=== PATIENT | female | born 1985 | race African-American/Black ===

== ENCOUNTER 2024-01-10 11:10 | Outpatient (CLI) | payer MEDICARE, MEDICAID, SELFPAY ==
[2024-01-10 11:57] LABS: Hematocrit 41.9 % (37.0-47.0); Hemoglobin 13.3 g/dL (12.0-15.0); Mean Corpuscular HGB Conc 31.7 g/dl (32-36); Mean Corpuscular Hemoglobin 26.1 pg (26-34); Mean Corpuscular Volume 82.2 fl (80-100); Platelet Count Result 256 k/mm3 (150-375); Red Cell Distribution Width 13.1 % (11.5-14.5); White Blood Count 7.5 K/mm3 (4.5-10.0)
[2024-01-10 12:10] LABS: Alanine Aminotransferase 13 U/L (6-35); Albumin Level 4.4 g/dL (3.5-5.1); Alkaline Phosphatase 100 U/L (38-126); Anion Gap 10 mmol/L (4-12); Aspartate Amino Transferase 22 U/L (14-36); Bilirubin,Total 0.5 mg/dL (0.2-1.3); Blood Urea Nitrogen 11 mg/dL (7-17); Calcium 9.3 mg/dL (8.4-10.2); Carbon Dioxide 27 mmol/L (22-30); Chloride 105 mmol/L (98-107); Estimated Glomerular Filt Rate > 60; Glucose 78 mg/dL (65-110); Potassium 3.5 mmol/L (3.4-5.0); Sodium 142 mmol/L (137-145)
[2024-01-10 12:15] LABS: INR 1.2
[2024-01-10 12:16] LABS: Immunoglobulin A 149 mg/dL (70-400)
[2024-01-10 12:35] LABS: Iron 135 ug/dL (37-170)
[2024-01-10 12:44] LABS: Percent Iron Saturation 36 % (20-50)
[2024-01-10 13:08] LABS: Hepatitis B Surface Antigen Negative (Negative)
[2024-01-10 13:14] LABS: HAV RESULT Negative (Negative); Hepatitis B Core IgM Result Negative (Negative)
[2024-01-10 13:26] LABS: Hepatitis C Virus Antibody Negative (Negative)
[2024-01-11 15:19] LABS: GGT 20 U/L (3-50)
[2024-01-12 05:03] LABS: Hepatitis A Antibody Total NON-REACTIVE (NON-REACTIVE)
[2024-01-12 15:48] LABS: H pylori, Urea Breath NOT DETECTED (NOT DETECTED)
[2024-01-13 08:32] LABS: Anti Nuclear Antibody Pattern Cytoplasmic; Anti Nuclear Antibody Titer 1:40 titer
== END 2024-01-10 11:11 | disposition home or self-care (01) ==
PROVIDERS: PCP Student in an Organized Health Care Education/Training Program; Visit Provider Nurse Practitioner
DX: R74.8 Abnormal levels of other serum enzymes (principal); R10.13 Epigastric pain
CPT/HCPCS: 36415; 80053; 80074; 82103; 82248; 82390; 82728; 82784; 82977; 83013; 83520; 83540; 83550; 85027; 85610; 86038; 86039; 86364; 86376; 86708